=== PATIENT | male | born 2000 | race Two or more races ===

== ENCOUNTER 2021-10-09 10:52 | Emergency (ER) | payer SELFPAY ==
[~2021-10-09] VITALS: Ht 177.8 cm; Wt 68.0 kg
[2021-10-09] MEDS ORDERED: LIDOCAINE 1% HCL (LOCAL ANESTH.) INJ 20ML MDV IJ ONE (12:15)
[2021-10-09 12:30] VITALS: BP 118/80
[2021-10-09] MEDS ORDERED: NAPR500T31 PO (12:43)
[2021-10-09] MEDS ORDERED: CEPH-509 PO (12:43)
== END 2021-10-09 12:46 | disposition home or self-care (01) ==
LOC: ER 10:52
DX: S61.216A Laceration without foreign body of right little finger without damage to nail, initial encounter (principal); W26.9XXA Contact with unspecified sharp object(s), initial encounter; Y93.89 Activity, other specified; Y92.89 Other specified places as the place of occurrence of the external cause; Y99.8 Other external cause status
CPT/HCPCS: 12001; 99283; J2001

== ENCOUNTER 2021-10-19 10:17 | Emergency (ER) | payer SELFPAY ==
[~2021-10-19] VITALS: Ht 177.8 cm; Wt 68.1 kg
[~2021-10-19 10:17] MED LIST: CEPH-509 PO; NAPR500T31 PO
[2021-10-19 10:26] VITALS: BP 142/85
== END 2021-10-19 11:43 | disposition home or self-care (01) ==
LOC: ER 10:17
DX: S61.216D Laceration without foreign body of right little finger without damage to nail, subsequent encounter (principal); X58.XXXD Exposure to other specified factors, subsequent encounter